=== PATIENT | female | born 1980 | race Caucasian/White ===

== ENCOUNTER → 2019-09-04 | Outpatient (CLI) | payer MEDICAID, SELFPAY | END | disposition home or self-care (01) | LOC: LABSPEC 16:37 | PROVIDERS: PCP Family Medicine; Referring Provider Surgery; Visit Provider Surgery | DX: K61.1 Rectal abscess (principal) | CPT/HCPCS: 87070; 87075; 87076; 87077; 87186; 87205 ==

== ENCOUNTER 2019-11-19 09:00 | Day surgery (SDC) | payer MEDICAID, SELFPAY ==
--- NOTE | 2019-11-07 10:44 | HP_ITS ---
Intake Intake Visit Reasons: F/U PERIANAL ABSCESS Chief Complaint: recurrent perirectal abscess Credit Correspondence Clerk Required: No Is patient in pain?: No Allergies bee venom protein (honey bee) Allergy (Severe, Verified 11/07/19 10:20) Anaphylaxis codeine Allergy (Mild, Verified 11/07/19 10:20) hives Medications bupropion HCl 300 mg 24 hr tablet, extended release 300 mg PO QAM 11/28/18 [History Confirmed 11/28/18] levothyroxine 175 mcg capsule 175 mcg PO DAILY 11/28/18 [History Confirmed 11/28/18] [facility] Medical History Anxiety and depression (Acute) Back pain (Acute) Hypothyroidism (Acute) Osteoarthritis (Acute) Surgical History History of arthroplasty of right knee (Acute) History of arthroscopy of left knee (Acute) History of gastric bypass (Acute ~2011) History of tonsillectomy (Acute ~2001) Family History Mother Thyroid disorder Social History Smoking Status: Current every day smoker alcohol intake: never HPI HPI HPI: ISSA BROWN, is a 39 F who presents to the office today for HPI HPI Surgical H&P: Yes HPI: ISSA BROWN, is a 39 F who presents to the office today for Assessment & Plan Problems 1. Maria C-rectal abscess K61.1 Plan I have discussed the above with the patient. I have offered the patient colonoscopy for evaluation. I have explained the risks/benefits of the procedure and described the procedure. I have discussed the risks with the patient, including but not limited to: infection, bleeding, perforation of the GI tract requiring emergency surgery, inability to complete the procedure, injury to any internal organs, complications of anesthesia, etc. - the patient understands and agrees to proceed. I have answered all the patient's questions to the patient's satisfaction and the patient has no further questions. The patient has been given instructions for the colon cleansing preparation. One day of clears, MiraLAX/Dulcolax split prep Luz Saldivar M.D. Pager: [phone] [facility] [address] [place] [address], Outpatient Pavilion, [address] [place] [address] Office: [phone] Plan Detail Follow Up We will schedule colonoscopy Coding Diagnoses Maria C-rectal abscess K61.1 Date _ Luz Saldivar MD I have examined the patient the following changes are noted: Patient states she still has a little bit of serosanguineous drainage occasionally from inside her rectum but denies any swelling or pain. Procedure: Elective We discussed the current risks associated with COVID-19. While it is understood that there is a community spread of COVID-19, the risk of lucero COVID-19 while at [facility] ([facility]) is very low; however, the risk cannot be completely mitigated because of the community spread of the disease. We discussed in detail the risk of exposure to and/or potential harm posed by the COVID-19 virus with having a surgery/procedure at this time versus the risk of delaying the surgery/procedure. It is not possible to know either the risk of delaying the surgery or procedure or chance of getting an infection with perfect accuracy, but a joint decision was made to proceed at this time with the scheduled surgery/procedure as indicated on the consent form. Patient was notified that we will need to comply with any screening or testing [facility] wishes to perform or that surgery may be delayed for any positive results.
[2019-11-18 10:49] LABS: Probe Check PASS; Specimen Processing Control PASS
[2019-11-19] VITALS (7 sets, daily range): BP systolic 111–131; BP diastolic 52–92; PULSE 56–78; RESP 15–18; TEMP 36.2–36.4; O2SAT 99–100; BMI 52.2
[2019-11-19] MEDS: Lactated Ringers 1,000 ML 100 ML IV (09:30)
[2019-11-19 10:32] LABS: Internal QC Validated? YES +Cl - CLEAR BKGD
[2019-11-19 10:33] LABS: Pregnancy, Urine Negative Negative
--- NOTE | 2019-11-19 10:56 | OP.COLON_ITS ---
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 Last Colonoscopy: none. The patient's first colonoscopy is today. Complications: No immediate complications. Procedure: Pre-Anesthesia Assessment: - Prior to the procedure, a History and Physical was performed, and patient medications and allergies were reviewed. The patient's tolerance of previous anesthesia was also reviewed. The risks and benefits of the procedure and the sedation options and risks were discussed with the patient. All questions were answered, and informed consent was obtained. Prior Anticoagulants: The patient has taken no previous anticoagulant or antiplatelet agents. ASA Grade Assessment: Per anesthesia. After reviewing the risks and benefits, the patient was deemed in satisfactory condition to undergo the procedure. After I obtained informed consent, the scope was passed under direct vision. Throughout the procedure, the patient's blood pressure, pulse, and oxygen saturations were monitored continuously. The Colonoscope was introduced through the anus and advanced to the cecum, identified by the appendiceal orifice, ileocecal valve and palpation. The colonoscopy was performed without difficulty. The patient tolerated the procedure well. The quality of the bowel preparation was good. Scope In: 10:34:45 AM Scope Withdrawal Time 0 hours 8 minutes 51 seconds Scope Out: 10:49:21 AM Total Procedure Duration Time 0 hours 14 minutes 36 seconds Findings: Mild induration about 6:00-7:00 at anus (12:00 = posterior) The entire examined colon appeared normal. Internal hemorrhoids were found during retroflexion. The hemorrhoids were Grade I (internal hemorrhoids that do not prolapse). Impression: - The entire examined colon is normal. - Internal hemorrhoids. - No specimens collected. Recommendation: - Repeat colonoscopy in 10 years for screening purposes. - Continue present medications. Procedure Code(s): --- Professional --- 46856, Colonoscopy, flexible; diagnostic, including collection of specimen(s) by brushing or washing, when performed (separate procedure) Diagnosis Code(s): --- Professional --- K64.0, First degree hemorrhoids K60.5, Anorectal fistula CPT copyright 2017 [employer]. All rights reserved. The codes documented in this report are preliminary and upon pantry chef review may be revised to meet current compliance requirements. MD Luz Foley MD 11/19/2019 10:56:01 AM This report has been signed electronically. Number of Addenda: 0 Note Initiated On: 11/19/2019 10:14 AM
--- NOTE | 2019-11-19 10:56 | OP.CCLET_ITS ---
11/19/2019 Kusum Gifford Re : Colonoscopy procedure for Shirley Gifford This procedure was performed on Tuesday, November 19, 2019. My impressions and recommendations are as follows: Impressions : - The entire examined colon is normal. - Internal hemorrhoids. - No specimens collected. Recommendations : - Repeat colonoscopy in 10 years for screening purposes. - Continue present medications. My findings are described in the full procedure note, which is enclosed. If I can be of further assistance, please feel free to contact me at Doctor phone number(s): , Work: . Sincerely, MD Luz Foley MD 11/19/2019 10:56:01 AM This report has been signed electronically.
== END 2019-11-19 11:44 | disposition home or self-care (01) ==
LOC: EN 09:03 → AC 09:03
PROVIDERS: Anesthesiology; PCP Family Medicine; Referring Provider Family Medicine; Visit Provider Surgery
PROC: 0DJD8ZZ Inspection of Lower Intestinal Tract, Via Natural or Artificial Opening Endoscopic (ICD-10-PCS; CPT 45378; principal; 2019-11-19 09:55)
DX: K60.5 Anorectal fistula (principal); K64.0 First degree hemorrhoids; Z11.59 Encounter for screening for other viral diseases; F41.9 Anxiety disorder, unspecified; F32.9 Major depressive disorder, single episode, unspecified; E03.9 Hypothyroidism, unspecified; M19.90 Unspecified osteoarthritis, unspecified site; Z87.442 Personal history of urinary calculi; Z79.899 Other long term (current) drug therapy; F17.200 Nicotine dependence, unspecified, uncomplicated
CPT/HCPCS: 45378; 81025; 87635; G2023; J7120; J2405; U0003

== ENCOUNTER 2020-11-13 05:59 | Day surgery (SDC) | payer MEDICAID, SELFPAY ==
[2020-11-05 14:16] VITALS: BMI 52.2
[2020-11-13] VITALS (7 sets, daily range): BP systolic 106–132; BP diastolic 54–75; PULSE 58–81; RESP 15–16; TEMP 35.8–36.1; O2SAT 99–100; BMI 56.5
[2020-11-13 06:23] LABS: Internal QC Validated? YES +Cl - CLEAR BKGD; Pregnancy, Urine Negative Negative
[2020-11-13] MEDS: Lactated Ringers 1,000 ML 100 ML IV (07:14)
--- NOTE | 2020-11-13 07:16 | PCM.HP.STD ---
HPI - General HPI Narrative ISSA BROWN, is a 40 F who presents examined anesthesia, possible fistulotomy. Patient has had a recurrent perirectal abscess for several years. This been located about 7:00 with 6:00 being anterior. Patient just had incision and drainage last week. Patient was placed on Augmentin on Tuesday of last week. Patient states it is no longer draining and denies any pain in the swelling has improved as well. [facility] Medical History Anxiety and depression Back pain Hypothyroidism Osteoarthritis Maria C-rectal abscess Home Medications levothyroxine 175 mcg capsule 175 mcg PO DAILY 11/28/18 [History Last Taken Unknown] Allergy/AdvReac Type Severity Reaction Status Date / Time bee venom protein (honey bee) Allergy Severe Anaphylaxis Verified 11/06/20 09:37 codeine Allergy Mild hives Verified 11/06/20 09:37 Family History Mother Thyroid disorder Surgical History History of arthroplasty of right knee History of arthroscopy of left knee History of gastric bypass (~2011) History of tonsillectomy (~2001) Social History Smoking Status: Never smoker alcohol intake: never Vital Signs Vital Signs Vital Signs: 11/13/20 06:29 Temperature 96.4 F L Temperature Source Temporal Pulse Rate 67 Respiratory Rate 15 Respiratory Pattern Normal Blood Pressure 128/72 H Blood Pressure Mean 90 Blood Pressure Source Monitor Blood Pressure Position Semi-Fowlers Blood Pressure Location Left Arm Pulse Ox 100 Oxygen Delivery Method Room Air Weight Weight: 289 lb 10.998 oz Body Mass Index (BMI) 56.5 Physical Exam Const alert, oriented x3 and no apparent distress HEENT normocephalic and head/scalp atraumatic Resp normal respiratory effort Cardio regular rate GI soft to palpation and non-tender; Negative for non-distended GI Narrative: SACHA deferred Palpation: Negative for guarding Extremity no clubbing, cyanosis or edema Neuro CN's II-XII intact bilaterally Psych mental status grossly normal Lab / Micro Data Labs: Laboratory Results - last 24 hr 11/13/20 06:15 Urine Test Negative Assessment & Plan Assessment/Plan (1) Fistula, perirectal: PLAN: Discussed the procedure of exam under anesthesia, possible fistulotomy with patient. Including risks not limited to bleeding, infection, need for further surgery/referral to colorectal this is a deeper fistula. Patient is agreeable with plan. Luz Saldivar M.D. Pager: [phone] [facility] [address] [place] [address] [address] [place] [address] Office: [phone] Procedure Criteria Type of Procedure Procedure Type: Elective Elective Risks - COVID COVID Risk Discussion: The surgeon/proceduralist and patient have discussed in detail the risk of exposure to and/or potential harm posed by the COVID-19 virus with having a surgery/procedure at this time versus the risk of delaying the surgery/procedure. It is not possible to know either the risk of delaying the surgery or procedure or chance of getting an infection with perfect accuracy, but a joint decision was made between the patient and the surgeon/proceduralist to proceed at this time with the scheduled surgery/procedure as indicated on the consent form.
[2020-11-13] MEDS: Dibucaine 30 GM Tube 1 APPLIC (08:39)
[2020-11-13] MEDS: Bupiv/Epi 0.25% 30 ML Vial (08:41)
--- NOTE | 2020-11-13 08:41 | OP.PCM_ITS ---
Report of Operation Date of Procedure: 11/13/20 Pre-Operative Diagnosis: Perirectal fistula Post-Operative Diagnosis: Same Surgery/Procedure Performed:: Exam under anesthesia, fistulotomy with seton placement Surgeon: Luz Saldivar Type of Anesthesia: MAC/Supplemental Anesthesiologist: Placido Green Special Medications: none Specimen's removed: none Estimated Blood Loss (mL): <10 cc Description of Procedure: Indications: 40-year-old female presents with recurrent perirectal abscess at about 7:00?left side (with 6:00 anterior). Discussed exam under anesthesia and likely fistulotomy. Patient was agreeable with plan. Description patient was brought into the operating room placed in left lateral decubitus with appropriate padding. MAC anesthesia was induced. The anus was prepped and draped in usual sterile fashion with Betadine. The previous I&D site from last week healed however there was scar as the previous I&D's have all been at the same location. Local anesthesia of 0.25% bupivacaine with epinephrine was used at this location. SACHA did not reveal any obvious in duration internally. The previous I&D site was reincised for about 5 mm. A lacrimal probe was placed in the cavity and it tracked easily. Probe did communicate with the distal anal mucosa. Electrocautery was used to open the fistula tract. The lacrimal probe did go between the internal and external sphincters. The internal sphincter was not cut. Vessel loop was used as a seton to place through this tract. Curette was used to curette the fistula tract. The vessel loop was secured together in a loose loop with 3-0 silk suture. Area was irrigated. Hemostasis was assured with electrocautery. Large Gelfoam with bupivacaine was placed in the anus. Patient tolerated procedure well and was taken to the postanesthesia care unit in stable condition. Complications none
--- NOTE | 2020-11-13 08:48 | EX.PCM.DISCH ---
Discharge Instructions Diet Discharge Diet: Light diet - advance as tolerated Activity Discharge Activity: May Shower and - (Recommend sitz bath's 1-3 times daily) Dressing / Incision Call your doctor if your incision/area has: Continuous Slow Oozing, Sudden Increased Bleeding, Increased Pain/ Swelling, Increased Redness, Foul Smelling Discharge and Swelling at the incision site Call your doctor if you observe: Fever of 101 or Higher Remove Dressing in: 1 day (White Gelfoam in anus will fall out, Vesseloop is in the fistula tract and secured as a loop and will stay in place until follow-up) Follow Up Care Please Follow Up With: Luz Saldivar MD When: 1 to 2 weeks Test Results: Test results from this visit will be discussed in further detail at your follow-up appointment, if applicable. Discharge Plan Admission Attending Provider: Luz Saldivar Primary Care Provider: Kusum Gifford Instructions Additional Instructions / Restrictions: Okay to take ibuprofen 400-600 mg PO q6hr PRN along with the hydrocodone/acetaminophen. Avoid Tylenol since there is already Tylenol in the hydrocodone/acetaminophen. Take all pain meds with food. Hydrocodone/acetaminophen can cause constipation recommend taking daily stool softener (i.e. Colace/docusate) while taking the pain meds. Recommend starting some MiraLAX in 1 to 2 days if no bowel movement. If still no bowel movement the following day recommend taking magnesium citrate half the bottle and waiting 4-6 hours if still no results take the other half the bottle. Discharge Orders/Prescriptions Prescriptions: New hydrocodone-acetaminophen 5-325 mg tablet 1 - 2 tab PO Q6H PRN (Reason: pain) 3 Days Qty: 14 RF: 0 No Action levothyroxine 175 mcg capsule 175 mcg PO DAILY RF: 0 Referrals / Follow Up: Kusum Gifford MD [Primary Care Provider] - Disposition Disposition (needs filled in before D/C Order can be placed): Home, self care
[2020-11-13] MEDS: HYDROcodone Bitartrate/Apap 5/325 Tablet PO (10:29)
== END 2020-11-13 11:06 | disposition home or self-care (01) ==
LOC: SDC 06:00 → AC 06:01
PROVIDERS: Anesthesiology; PCP Family Medicine; Referring Provider Surgery; Visit Provider Surgery
PROC: (CPT 46020; principal; 2020-11-13 07:15)
DX: K60.4 Rectal fistula (principal); M19.90 Unspecified osteoarthritis, unspecified site; E03.9 Hypothyroidism, unspecified; E66.01 Morbid (severe) obesity due to excess calories; Z68.43 Body mass index [BMI] 50.0-59.9, adult; Z79.899 Other long term (current) drug therapy
CPT/HCPCS: 46020; 46270; 81025; J7120

== ENCOUNTER → 2022-11-26 | Outpatient (CLI) | payer OTHER, MEDICAID, SELFPAY | END | disposition home or self-care (01) | LOC: LABSPEC 16:05 | PROVIDERS: PCP Family Medicine; Referring Provider Surgery; Visit Provider Surgery | DX: K60.4 Rectal fistula (principal) | CPT/HCPCS: 87070; 87075; 87077; 87186; 87205 ==